=== PATIENT | male | born 1965 | race Caucasian/White ===

== ENCOUNTER 2021-05-22 14:41 | Outpatient (REF) | payer BC, SELFPAY ==
--- NOTE | ~2021-05-22 | XR_ITS ---
EXAMINATION: XR HAND, RIGHT CLINICAL INFORMATION: Pain COMPARISON: 12/27/2017 TECHNIQUE: PA, lateral, and oblique views of the right hand. FINDINGS: The bones and soft tissues are normal. No fracture. Alignment is anatomic. Joint spaces are maintained. No erosions or soft tissue calcifications. XR/XR hand RT 2V IMPRESSION: Normal right hand.
== END 2021-05-22 14:42 | disposition home or self-care (01) ==
LOC: HO.XRAY 14:41
PROVIDERS: PCP Internal Medicine; Visit Provider Internal Medicine
DX: M79.643 Pain in unspecified hand (principal)
CPT/HCPCS: 73120

== ENCOUNTER → 2021-07-12 13:00 | Outpatient (BNVA) | payer BC, SELFPAY | PROVIDERS: PCP Internal Medicine; Visit Provider Orthopaedic Surgery ==

== ENCOUNTER 2022-04-28 15:07 | Emergency (ER) | payer BC, SELFPAY ==
[2022-04-28 15:14] VITALS: BP 114/69; PULSE 68; RESP 18; TEMP 36.8; O2SAT 95; BMI 24.3
--- NOTE | 2022-04-28 15:40 | ED.WOUNDLAC ---
HPI - Wound/Laceration General Chief Complaint: Wound/Laceration <Arlyn Mcmillan MD - Last Filed: 04/28/22 15:42> Stated Complaint: laceration on R thumb <Arlyn Mcmillan MD - Last Filed: 04/28/22 15:42> Time Seen by Provider: 04/28/22 15:38 <Arlyn Mcmillan MD - Last Filed: 04/28/22 15:42> Source: patient <Arlyn Mcmillan MD - Last Filed: 04/28/22 15:42> Mode of arrival: ambulatory <Arlyn Mcmillan MD - Last Filed: 04/28/22 15:42> History of Present Illness HPI narrative: 57-year-old male, left-handed, up-to-date on tetanus cut his right thumb with a tile knife. <Arlyn Mcmillan MD - Last Filed: 04/28/22 15:42> Related Data Home Medications: Home Medications Medication Instructions Recorded Confirmed No Known Home Meds 07/12/21 07/12/21 <Arlyn Mcmillan MD - Last Filed: 04/28/22 15:42> Allergies/Adverse Reactions: Allergies Allergy/AdvReac Type Severity Reaction Status Date / Time oxycodone [OXYCODONE] AdvReac Intermediate LETHARGY Verified 07/12/21 13:09 HAYFEVER Allergy Mild ITCHING Uncoded 08/11/20 15:24 narcotics make him sick Allergy Unknown Unknown Uncoded 05/22/21 14:18 <Arlyn Mcmillan MD - Last Filed: 04/28/22 15:42> Review of Systems Review of Systems: Pertinent positives and negatives as stated in HPI 10 point review of systems is otherwise negative. <Arlyn Mcmillan MD - Last Filed: 04/28/22 15:42> PMFSH Past Medical History Source: nursing notes reviewed <Arlyn Mcmillan MD - Last Filed: 04/28/22 15:42> Surgical History: Surgical History History of hemorrhoidectomy <Arlyn Mcmillan MD - Last Filed: 04/28/22 15:42> Family History Family History: Family History Mother No problems noted. Father No problems noted. 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 GENERAL: Well developed, well nourished, in no acute distress. HEAD: Normocephalic/atraumatic EYES: PERRLA, EOMI LUNGS: Normal breath sounds. No adventitious sounds or accessory muscle use. SpO2<95> CARDIOVASCULAR: Regular rate and rhythm without noted murmurs ABDOMEN: Soft, non-tender, non-distended with bowel sounds. EXTREMITIES: No cyanosis, clubbing or edema, right thumb 2.5 cm laceration that is hemostatic at this time all neurovascular is intact. NEUROLOGIC: Alert and oriented x 4. <Arlyn Mcmillan MD - Last Filed: 04/28/22 15:42> Vital Signs: Last Vital Signs Temp 98.3 F 04/28/22 15:14 Pulse 68 04/28/22 15:14 Resp 18 04/28/22 15:14 BP 114/69 04/28/22 15:14 Pulse Ox 95 04/28/22 15:14 BMI result Body Mass Index 24.3 <FABI Lovell - Last Filed: 04/28/22 16:31> Course Course Course Narrative: 57-year-old male with history and clinical presentation consistent with laceration to the non dominant thumb repaired without complication discharged home in stable condition. <Arlyn Mcmillan MD - Last Filed: 04/28/22 15:42> Procedures Laceration Laceration 1: Site: hand <FABI Lovell Last Filed: 04/28/22 16:31> Side (If applicable): right <FABI Lovell - Last Filed: 04/28/22 16:31> Size (cm): 2 <FABI Lovell - Last Filed: 04/28/22 16:31> Description: linear <FABI Lovell - Last Filed: 04/28/22 16:31> Depth: simple, single layer <FABI Lovell Last Filed: 04/28/22 16:31> Local Anesthetic: lidocaine 2% <FABI Lovell - Last Filed: 04/28/22 16:31> Amount of anesthesia used (mL): 3 <FABI Lovell Last Filed: 04/28/22 16:31> Pre-repair: wound explored, irrigated extensively and deep structures intact <FABI Lovell - Last Filed: 04/28/22 16:31> Skin layer closed with: nylon <FABI Lovell - Last Filed: 04/28/22 16:31> Size (cm): 4-0 <FABI Lovell - Last Filed: 04/28/22 16:31> Number of sutures: 5 <FABI Lovell Last Filed: 04/28/22 16:31> Technique: simple, interrupted <FABI Lovell - Last Filed: 04/28/22 16:31> Discharge Plan Discharge Clinical Impression: Laceration of thumb <Arlyn Mcmillan MD - Last Filed: 04/28/22 15:42> Patient Disposition: Home, Self-Care <Arlyn Mcmillan MD - Last Filed: 04/28/22 15:42> Instructions: Finger Laceration (ED) <Arlyn Mcmillan MD - Last Filed: 04/28/22 15:42> Additional Instructions: You will need your stitches out in 7 days. See you doctor for this or come back to the ER and we will remove them. Do not get wet for 24 hours, after that you can briefly wash with soap and water then pat dry. Use bacitracin 2x per day. Keep wound clean and covered. Do not submerge in water, no swimming. If you develop signs of infection including increased pain, swelling, redness or drainage of pus come back to the ER for further evaluation. <Arlyn Mcmillan MD - Last Filed: 04/28/22 15:42>
[2022-04-28] MEDS: Lidocaine HCl 2 % MPF 5 ML VIAL SUBCUT (15:54)
--- NOTE | 2022-04-28 16:33 | ED_ITS ---
HPI - Wound/Laceration General Chief Complaint: Wound/Laceration <FABI Lovell - Last Filed: 04/28/22 16:38> Stated Complaint: laceration on R thumb <FABI Lovell - Last Filed: 04/28/22 16:38> Time Seen by Provider: 04/28/22 15:38 <FABI Lovell - Last Filed: 04/28/22 16:38> Source: patient <FABI Lovell - Last Filed: 04/28/22 16:38> Mode of arrival: ambulatory <FABI Lovell Last Filed: 04/28/22 16:38> Limitations: no limitations <FABI Lovell Last Filed: 04/28/22 16:38> History of Present Illness HPI narrative: 57-year-old left-hand dominant male presents to the ER for evaluation of a laceration on the tip of his right thumb. just prior to arrival he accidentally sliced the thumb with a utility knife while he was cutting vinyl vesta at a family member's house. He had immediate pain and bleeding. He applied pressure and still had losing. He ran out of the kitchen sink and still had bleeding so he came to the ER for further evaluation. On arrival to the ER bleeding is controlled. He denies any loss of movement or sensation. He is up-to-date on his tetanus shot. <FABI Lovell - Last Filed: 04/28/22 16:38> Onset (ago): minute(s) <FABI Lovell Last Filed: 04/28/22 16:38> Extremity Location: right: hand (right thumb) <FABI Lovell - Last Filed: 04/28/22 16:38> Place: home <FABI Lovell Last Filed: 04/28/22 16:38> Patient tetanus UTD: Yes <FABI Lovell Last Filed: 04/28/22 16:38> Context: accidental <FABI Lovell Last Filed: 04/28/22 16:38> Associated symptoms: none <FABI Lovell Last Filed: 04/28/22 16:38> Treatments prior to arrival: bandage <FABI Lovell - Last Filed: 04/28/22 16:38> Related Data Home Medications: Home Medications Medication Instructions Recorded Confirmed No Known Home Meds 07/12/21 07/12/21 <FABI Lovell - Last Filed: 04/28/22 16:38> Allergies/Adverse Reactions: Allergies Allergy/AdvReac Type Severity Reaction Status Date / Time oxycodone [OXYCODONE] AdvReac Intermediate LETHARGY Verified 07/12/21 13:09 HAYFEVER Allergy Mild ITCHING Uncoded 08/11/20 15:24 narcotics make him sick Allergy Unknown Unknown Uncoded 05/22/21 14:18 <FABI Lovell Last Filed: 04/28/22 16:38> Review of Systems Review of Systems: Constitutional: No Fever, No Chills Cardiovascular: No Chest Pain, No SOB Gastrointestinal: No Nausea, No Vomiting Musculoskeletal: No joint pain, No Myalgias Skin: + Skin Lesions, No rash Neuro: No Weakness, No Numbness Heme/Lymph: No Bruising <FABI Lovell Last Filed: 04/28/22 16:38> PMF Past Medical History Surgical History: Surgical History History of hemorrhoidectomy <FABI Lovell Last Filed: 04/28/22 16:38> Family History Family History: Family History Mother No problems noted. Father No problems noted. 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 Oriented X3. No acute distress. HEENT: normal inspection CVS: Normal heart rate and rhythm. Pulses normal. Respiratory: No respiratory distress. Skin: Skin warm and dry. Normal skin color. Normal skin turgor. No rashes. Extremities: 2cm linear superficial laceration of the pulp of the right thumb, stops at the nail bed and does not involve the nail. sllight oozing. normal Extension, flexion, cap refill less than 3 seconds. No sensory deficits. Neuro: Oriented X 3. No motor deficit. No sensory deficit. <FABI Lovell Last Filed: 04/28/22 16:38> Course Course Course Narrative: 57-year-old male presents to the ER with a superficial laceration to the distal right thumb after an accident with a utility knife while cutting vital vesta. He reports significant bleeding at the time, stopped with direct pressure. No numbness or tingling. On examination wound appears to be superficial, also structures are intact and does not appear to be down to the bone. He has full range of motion and sensation of the thumb. Amenable to suture closure. Tdap up-to-date. <FABI Lovell Last Filed: 04/28/22 16:38> Reevaluation(s) Reevaluation #1: Adequate wound approximation and cessation of bleeding with 5 simple interrupted sutures. Patient tolerated well. Went over wound care. Stable for [place] home. <FABI Lovell Last Filed: 04/28/22 16:38> Procedures Laceration Laceration 1: Site: hand <FABI Lovell Last Filed: 04/28/22 16:38> Side (If applicable): right <FABI Lovell Last Filed: 04/28/22 16:38> Size (cm): 2 <FABI Lovell Last Filed: 04/28/22 16:38> Description: linear <FABI Lovell Last Filed: 04/28/22 16:38> Depth: simple, single layer <FABI Lovell Last Filed: 04/28/22 16:38> Local Anesthetic: lidocaine 2% <FABI Lovell Last Filed: 04/28/22 16:38> Amount of anesthesia used (mL): 3 <FABI Lovell Last Filed: 04/28/22 16:38> Pre-repair: wound explored, irrigated extensively and deep structures intact <FABI Lovell - Last Filed: 04/28/22 16:38> Skin layer closed with: nylon <FABI Lovell Last Filed: 04/28/22 16:38> Size (cm): 4-0 <FABI Lovell Last Filed: 04/28/22 16:38> Number of sutures: 5 <FABI Lovell - Last Filed: 04/28/22 16:38> Technique: simple, interrupted <FABI Lovell Last Filed: 04/28/22 16:38> Discharge Plan Discharge Clinical Impression: Laceration of thumb <FABI Lovell Last Filed: 04/28/22 16:38> Patient Disposition: Home, Self-Care <FABI Lovell Last Filed: 04/28/22 16:38> Instructions: Finger Laceration (ED) <FABI Lovell - Last Filed: 04/28/22 16:38> Additional Instructions: You will need your stitches out in 7 days. See you doctor for this or come back to the ER and we will remove them. Do not get wet for 24 hours, after that you can briefly wash with soap and water then pat dry. Use bacitracin 2x per day. Keep wound clean and covered. Do not submerge in water, no swimming. If you develop signs of infection including increased pain, swelling, redness or drainage of pus come back to the ER for further evaluation. <FABI Lovell Last Filed: 04/28/22 16:38> Interventions: ED Discharge Assessment Last Done: 04/28/22 16:44 <FABI Lovell Last Filed: 04/28/22 16:38> Discharge Date/Time: 04/28/22 16:48 <FABI Lovell - Last Filed: 04/28/22 16:38>
== END 2022-04-28 16:48 | disposition home or self-care (01) ==
PROVIDERS: Emergency Provider Student in an Organized Health Care Education/Training Program; PCP Internal Medicine
DX: S61.011A Laceration without foreign body of right thumb without damage to nail, initial encounter (principal); W26.0XXA Contact with knife, initial encounter; Y93.9 Activity, unspecified; Y92.009 Unspecified place in unspecified non-institutional (private) residence as the place of occurrence of the external cause; Y99.9 Unspecified external cause status
CPT/HCPCS: 12001; 99283

== ENCOUNTER 2024-01-31 15:29 | Outpatient (REF) | payer BC, SELFPAY ==
--- NOTE | ~2024-01-31 | XR_ITS ---
EXAMINATION: XR CHEST 2 VIEWS CLINICAL INFORMATION: Cough. COMPARISON: Chest radiographs dated 10/28/2017. TECHNIQUE: Frontal and lateral views of the chest were obtained. FINDINGS: The heart, great vessels, pulmonary vasculature and mediastinum are normal. The lungs show no focal infiltrate, effusion or pneumothorax. There is no acute osseous abnormality. There is a mild thoracic dextroscoliosis. XR/XR chest 4 views IMPRESSION: No active cardiopulmonary disease.
== END 2024-01-31 15:30 | disposition home or self-care (01) ==
LOC: HO.XRAY 15:29
PROVIDERS: PCP Internal Medicine; Visit Provider Internal Medicine
DX: Z91.81 History of falling (principal)
CPT/HCPCS: 71048

== ENCOUNTER 2025-08-03 10:53 | Outpatient (AMB) | payer BC, SELFPAY ==
[2025-08-03 10:52] VITALS: BP 116/82; PULSE 69; TEMP 36.4; O2SAT 97; BMI 25.3
--- NOTE | 2025-08-03 10:52 | MHC.OFFWIV ---
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 Pt states he went to an urgent care on 07/28/25 and was given prednisone. Pt states he had eye swelling then which did subside with the prednisone but the rash stayed. 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 Vital signs are stable [facility] Surgical History History of hemorrhoidectomy Family History Mother No problems noted. Father No problems noted. 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 Cognitive needs: No Hearing needs: No Vision needs: Yes Review of Systems Const Denies chills and Denies fever(s) ENT Denies epistaxis and Denies nasal discharge Card Denies chest pain Resp Denies chest congestion, Denies cough and Denies hemoptysis GI Denies diarrhea and Denies nausea Neuro Reports no additional complaints Psych Reports no additional complaints Endo Reports no additional complaints Physical Exam Vital Signs: Last Vital Signs Temp 97.6 F 08/03/25 10:52 Pulse 69 08/03/25 10:52 BP 116/82 08/03/25 10:52 Pulse Ox 97 08/03/25 10:52 Oxygen Delivery Method Room Air 08/03/25 10:52 BMI result Body Mass Index 25.3 Const General: cooperative, comfortable and no acute distress Orientation/consciousness: patient oriented x3 HEENT Head: Yes normocephalic Eyes General: appearance normal, both eyes and all related structures Neck Other: Supple Neck: Yes supple Resp Effort & Inspection: normal respiratory effort, no cough and no stridor Skin General skin exam: turgor normal Full body images:  1. Maculopapular rash 2. Maculopapular rash Neuro Other: Motor sensory intact General: patient oriented x3, tone normal and moves all extremities Extrem Other: No lower extremity swelling. Right lower extremity: no edema Left lower extremity: no edema Psych Other: Normal effect, speech clear Assessment & Plan Assessment & Plan (1) Contact dermatitis: Code(s): L25.9 - Unspecified contact dermatitis, unspecified cause Qualifiers: Contact dermatitis trigger: unspecified trigger Contact dermatitis type: allergic Qualified Code(s): L23.9 - Allergic contact dermatitis, unspecified cause Plan Patient is 60-year-old gentleman who has developed a pruritic rash since last Saturday Be says that he had a rash on his face as well with the swelling of his eyelid He was seen in urgent care and was given 8 tablets of prednisone which resolved the swelling on his face but his rash is still there Is not spreading, but is very pruritic On examination patient have developed a contact dermatitis Patient says that he had a similar rash in the past as well and required a tapering dose of prednisone He is requesting the same. Vital signs are stable Coding Level of Care Code New Pt Level 3 (46784) Diagnoses Allergic contact dermatitis, unspecified trigger L23.9 Contact dermatitis trigger: unspecified trigger Contact dermatitis type: allergic
== END 2025-08-03 12:00 | disposition home or self-care (01) ==
PROVIDERS: PCP Internal Medicine; Visit Provider Internal Medicine
DX: L23.9 Allergic contact dermatitis, unspecified cause (principal)

== ENCOUNTER 2025-10-12 08:35 | Outpatient (AMB) | payer BC, SELFPAY ==
[2025-10-12 08:45] VITALS: BP 110/70; PULSE 66; TEMP 36.7; O2SAT 99; BMI 25.1
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
== END 2025-10-12 09:26 | disposition home or self-care (01) ==
LOC: HO.HMCH 08:36
DX: Z00.00 Encounter for general adult medical examination without abnormal findings (principal); S06.9X5D Unspecified intracranial injury with loss of consciousness greater than 24 hours with return to pre-existing conscious level, subsequent encounter; Z87.828 Personal history of other (healed) physical injury and trauma; Z12.11 Encounter for screening for malignant neoplasm of colon; Z12.12 Encounter for screening for malignant neoplasm of rectum

== ENCOUNTER → 2025-10-12 08:35 | Outpatient (BNVA) | payer BC, SELFPAY | DX: Z00.00 Encounter for general adult medical examination without abnormal findings (principal); Z12.11 Encounter for screening for malignant neoplasm of colon; Z12.12 Encounter for screening for malignant neoplasm of rectum; S06.9X5D Unspecified intracranial injury with loss of consciousness greater than 24 hours with return to pre-existing conscious level, subsequent encounter; Z87.828 Personal history of other (healed) physical injury and trauma | CPT/HCPCS: 96127 ==